=== PATIENT | female | born 1995 | race Caucasian/White ===

== ENCOUNTER 2019-10-24 11:30 | Emergency (ER) | payer BC, MEDICAID ==
--- NOTE | 2019-10-24 12:37 | EDM.PDOC ---
ED HPI GENERAL MEDICAL PROBLEM - General Chief Complaint: Respiratory Problem Stated Complaint: CONGESTION AND COUGH 32 WEEKS PREG Time Seen by Provider: 10/24/19 12:04 Source of Information: Reports: Patient, RN Notes Reviewed History Limitations: Reports: No Limitations - History of Present Illness INITIAL COMMENTS - FREE TEXT/NARRATIVE: Patient is a 24-year-old female who presents to the ED for the evaluation of cough and chest congestion. Patient is 32 weeks , . 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 Patient notes that she developed a cough around 2 days ago, but noticed that she was developing some chest soreness yesterday, she feels as if there are just razor blades in her chest. She notes that she is coughing up some yellow sputum at times, but not with every cough. She does note feeling hot and cold however she has not had any documented fever at home. She has been having a mild headache as well with the coughing. Patient notes she has been using some Tylenol at home, and did take 1 dose of Robitussin, this did not provide a very good relief from the cough. She notes that she is not having any stridor nausea/vomiting/diarrhea, no abdominal cramping or vaginal bleeding, she states that she is feeling the fetus move well, and notes that her is going well. She did not receive a flu vaccine this year however. Patient denies any sort of previous respiratory history of asthma. Chest Pain Score (Numeric/FACES): 4 - Related Data Allergies Allergy/AdvReac Type Severity Reaction Status Date / Time sulfamethoxazole Allergy Airway Verified 10/24/19 12:03 [From Bactrim] Tightness trimethoprim [From Bactrim] Allergy Airway Verified 10/24/19 12:03 Tightness Home Meds: Home Meds FLUoxetine HCl [Prozac] 20 mg PO DAILY 10/24/19 [History] Oseltamivir [Tamiflu] 75 mg PO BID #10 cap 10/24/19 [Rx] Pnv No.95/Ferrous Fum/Folic AC [ Vitamins Tablet] 1 tab PO DAILY [History] Promethazine HCl/Codeine [Prometh-Codein 6.25-10 mg/5 ml] 5 ml PO Q4H PRN #60 ml 10/24/19 [Rx] Past Medical History 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 Denies: Shortness of Breath, Wheezing GI/Abdominal: Denies: Abdominal Pain, Constipation, Diarrhea, Nausea, Vomiting Musculoskeletal: Denies: Back Pain Neurological: Reports: Headache (mild) ED EXAM, GENERAL - Physical Exam Exam: See Below Exam Limited By: No Limitations General Appearance: Alert, WD/WN, No Apparent Distress Eye Exam: Bilateral Eye: EOMI, Normal Inspection, PERRL Ears: Normal External Exam, Normal Canal, Hearing Grossly Normal, Normal TMs Nose: Normal Inspection Throat/Mouth: Normal Inspection, Normal Lips, Normal Teeth, Normal Gums, Normal Oropharynx, Normal Voice, No Airway Compromise Head: Atraumatic, Normocephalic Neck: Normal Inspection, Supple, Non-Tender, Full Range of Motion Respiratory/Chest: No Respiratory Distress, Lungs Clear, Normal Breath Sounds, No Accessory Muscle Use, Chest Non-Tender Cardiovascular: Normal Peripheral Pulses, Regular Rate, Rhythm, No Edema, No Murmur GI/Abdominal: Normal Bowel Sounds, Soft, Non-Tender, No Distention, No Mass Extremities: Normal Inspection, Normal Capillary Refill Neurological: Alert, Oriented, Normal Cognition, No Motor/Sensory Deficits Psychiatric: Normal Affect, Normal Mood Skin Exam: Warm, Dry, Intact, Normal Color, No Rash Course - Vital Signs Last Recorded V/S: Last Vital Signs Temp 97.7 F 10/24/19 12:04 Pulse 92 10/24/19 12:04 Resp 17 10/24/19 12:04 BP 123/68 10/24/19 12:04 Pulse Ox 99 10/24/19 12:04 - Orders/Labs/Meds Meds: Medications Discontinued Medications Generic Name Dose Route Start Last Admin Trade Name Freq PRN Reason Stop Dose Admin Influenza Virus Vaccine 60 mcg 10/24/19 13:25 Fluzone Quad [id number] Syringe IM 10/24/19 13:26 .ONCE ONE - Re-Assessments/Exams Free Text/Narrative Re-Assessment/Exam: 10/24/19 12:37 Patient presents to the ED for evaluation of a cough and chest congestion, she is afebrile at time of presentation, however due to her reported feeling hot and cold at home I will obtain a flu swab for evaluation, however will likely recommend symptomatic treatment. 10/24/19 13:12 I did discuss the use of phenergan with codeine cough syrup with Dr. Flynn, he thinks it should be fine/safe to use in small doses. I will give the patient a small amount of this and have her try other symptomatic OTC treatments, and have her follow up with her WIND PROJECT MANAGER on saturday. Pt is influenza B positive. 10/24/19 13:[address] Denny and she states that Tamiflu is safe to use in . She also noted that the Phenergan and codeine is okay as well, in small doses. She suggested giving the patient a flu shot as well today. Departure - Departure Time of Disposition: 13:27 Disposition: Home, Self-Care 01 Condition: Fair Clinical Impression: Influenza B - Discharge Information *PRESCRIPTION DRUG MONITORING PROGRAM REVIEWED*: No *COPY OF PRESCRIPTION DRUG MONITORING REPORT IN PATIENT VIOLA: No Prescriptions: Oseltamivir [Tamiflu] 75 mg PO BID #10 cap Promethazine HCl/Codeine [Prometh-Codein 6.25-10 mg/5 ml] 5 ml PO Q4H PRN #60 ml PRN Reason: Cough Instructions: Influenza, Adult, [id number] Referrals: Megan Wade MD [Primary Care Provider] - Forms: ED Department Discharge Additional Instructions: You have been evaluated in the ED for cold like symptoms and fever. You did test positive for influenza B. Please try to limit your exposure to others until you are 24 hours fever free. You may take Tylenol, 500 mg every 6 hours as needed for fever and pain relief. You were given a prescription for Tamiflu, please take as directed until gone. You were also given a prescription for some stronger cough medicine, take as directed, please be cautioned that this can cause decreased movement of the fetus as this has an opiate in it. Please try to take as little of this is possible for cough relief. You were also given a list of common over-the- counter medications and her safety use during , you may references for further symptomatic control. Please encourage fluid intake as well as a bland diet until you can tolerate normal foods. Please return to the ED if your symptoms should change or worsen. Sepsis Event Note - Evaluation Sepsis Screening Result: Possible Sepsis Risk - Focused Exam Vital Signs: Vital Signs Temp Pulse Resp BP Pulse Ox 10/24/19 12:04 97.7 F 92 17 123/68 99 Date Exam was Performed: 10/24/19 Time Exam was Performed: 13:26
[2019-10-24] MEDS ORDERED: FLU Vacc QS2019-20(6MOS+)/PF 60 MCG/0.5 ML SYRINGE IM ONE (13:25)
== END 2019-10-24 13:45 | disposition home or self-care (01) ==
LOC: JD.ED 11:30
DX: J10.1 Influenza due to other identified influenza virus with other respiratory manifestations (principal); Z88.1 Allergy status to other antibiotic agents
CPT/HCPCS: 87804; 90686; 99283; 99284-25; G0008

== ENCOUNTER 2019-12-19 09:47 | Inpatient (IN) | payer BC, MEDICAID ==
[2019-12-19] MEDS ORDERED: Misoprostol 100 MCG Tab VAG PRN (11:45)
[2019-12-19] MEDS ORDERED: Oxytocin/Lactated Ringers 10 UNIT/1,000 ML BAG IV SCH ×2 (11:45)
[2019-12-19] MEDS ORDERED: Ondansetron 4 MG/2 ML SDV IVPUSH PRN (11:45)
[2019-12-19] MEDS ORDERED: Sodium Chloride 0.9% 10 ML Syringe FLUSH PRN (11:45)
[2019-12-19] MEDS ORDERED: Nalbuphine 10 MG/ML Syringe IVPUSH PRN (11:45)
--- NOTE | 2019-12-19 12:14 | PCM.LDHP ---
L&D History of Present Illness - General Date of Service: 12/19/19 Admit Problem/Dx: Patient Status Order with Admit Dx/Problem 12/19/19 11:45 Patient Status [ADT] Routine Admission Diagnosis/Problem Admission Diagnosis/Problem 40 weeks gestation of Source of Information: Patient History Limitations: Reports: No Limitations - History of Present Illness Introduction:: Patient is a 24 y/o at 40 4/7 wks who presents for post dates IOL. Doing well today. Having some mild cramping. Notes good FM. 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: 0 LMP (Approximate): Psychiatric History: Reports: Anxiety, Depression - Past Surgical History GI Surgical History: Reports: Appendectomy Social & Family History - Family History Family Medical History: Noncontributory - Tobacco Use Smoking Status *Q: Former Smoker - Caffeine Use Caffeine Use: Reports: Coffee - Alcohol Use Alcohol Use History: No - Recreational Drug Use Recreational Drug Use: No H&P Review of Systems - Review of Systems: Review Of Systems: See Below General: Reports: No Symptoms Pulmonary: Reports: No Symptoms Cardiovascular: Reports: No Symptoms Gastrointestinal: Reports: No Symptoms Genitourinary: Reports: No Symptoms Musculoskeletal: Reports: No Symptoms Psychiatric: Reports: No Symptoms Neurological: Reports: No Symptoms L&D Exam - Exam Exam: See Below - OB Specific Contraction Intensity: Irritability Movement: Active Heart Tones: Present Heart Tones per Min: 120 Heart Rate (FHR) Variability: Moderate (6-25 bmp) Presentation: Vertex - Garcia Score Garcia Score Cervix Position: Midposition Garcia Score Consistency: Soft Garcia Score Effacement: >80% Garcia Score Dilation: 1-2 cm Garcia Score Infant's Station: -1 ,0 Garcia Score Total: 9 - Exam General: Alert, Oriented, Cooperative Lungs: Clear to Auscultation, Normal Respiratory Effort Cardiovascular: Regular Rate, Regular Rhythm GI/Abdominal Exam: Soft, Non-Tender Genitourinary: Normal external exam Extremities: Normal Inspection Skin: Warm, Dry, Intact - Patient Data Result Diagrams: 12/19/19 13:36 - Problem List (1) Postmaturity , 40-42 weeks gestation SNOMED Code(s): 91326316153916 ICD Code: O48.0 - POST-TERM Status: Acute Current Visit: Yes (2) Rubella non-immune status, antepartum SNOMED Code(s): 345520623 ICD Code: O99.89 - OTH DISEASES AND CONDITIONS COMPL PREG/CHLDBRTH; Z28.3 - UNDERIMMUNIZATION STATUS Status: Acute Current Visit: Yes Problem List Initiated/Reviewed/Updated: Yes Orders Last 24hrs: Active Orders 24 hr Category Date Time Status Patient Status [ADT] Routine ADT 12/19/19 11:45 Active Activity as Tolerated [RC] PFP Care 12/19/19 11:45 Active Communication Order [RC] ASDIRECTED Care 12/19/19 11:45 Active Communication Order [RC] ASDIRECTED Care 12/19/19 11:45 Active Communication Order [RC] ASDIRECTED Care 12/19/19 11:45 Active Heart Tones [RC] ASDIRECTED Care 12/19/19 11:46 Active Monitoring [RC] INTERMITTENT Care 12/19/19 11:45 Active Non Stress Test [RC] PER UNIT ROUTINE Care 12/19/19 11:45 Active Notify Provider [RC] ASDIRECTED Care 12/19/19 11:45 Active Notify Provider [RC] PRN Care 12/19/19 11:45 Active Peripheral IV Care [RC] . DIRECTED Care 12/19/19 11:46 Active Up ad Cristal [RC] ASDIRECTED Care 12/19/19 11:46 Active Vaginal Exam [RC] ASDIRECTED Care 12/19/19 11:45 Active Vital Signs [RC] ASDIRECTED Care 12/19/19 11:45 Active Regular Diet [DIET] Diet 12/19/19 Lunch Active CBC W/O DIFF,HEMOGRAM [HEME] Routine Lab 12/19/19 13:30 Ordered RAPID PLASMA REAGIN,RPR [CHEM] Routine Lab 12/19/19 13:30 Ordered TYPE AND SCREEN [BBK] Routine Lab 12/19/19 13:30 Ordered Lactated Ringers [Ringers, Lactated] 1,000 ml Med 12/19/19 11:45 Active IV ASDIRECTED Nalbuphine [Nubain] Med 12/19/19 11:45 Active 10 mg IVPUSH Q2H PRN Ondansetron [Zofran] Med 12/19/19 11:45 Active 4 mg IVPUSH Q4H PRN Oxytocin/Lactated Ringers [Pitocin in LR 10 Units/1,000 Med 12/19/19 11:45 Active ML] 10 unit in 1,000 ml IV CONTINUOUS Oxytocin/Lactated Ringers [Pitocin in LR 10 Units/1,000 Med 12/19/19 11:45 Active ML] 10 unit in 1,000 ml IV TITRATE Sodium Chloride 0.9% [Saline Flush] Med 12/19/19 11:45 Active 10 ml FLUSH ASDIRECTED PRN miSOPROStoL [Cytotec] Med 12/19/19 11:45 Active 25 mcg VAG Q4H PRN Electronic Heart Tones Ext w TOCO [WOMSER] Oth 12/19/19 11:45 Ordered Routine Electronic Heart Tones Internal [WOMSER] Per Unit Oth 12/19/19 11:45 Ordered Routine Peripheral IV Insertion Adult [OM.PC] Routine Oth 12/19/19 11:45 Ordered Resuscitation Status Routine Resus Stat 12/19/19 11:45 Ordered Medication Orders Lactated Ringer's (Ringers, Lactated) 1,000 mls @ 40 mls/hr IV ASDIRECTED TYLER Oxytocin/Lactated Ringer's (Pitocin In Lr 10 Units/1,000 Ml) 10 unit in 1,000 mls @ 12 mls/hr IV TITRATE TYLER; Protocol Oxytocin/Lactated Ringer's (Pitocin In Lr 10 Units/1,000 Ml) 10 unit in 1,000 mls @ 500 mls/hr IV CONTINUOUS TYLER Misoprostol (Cytotec) 25 mcg VAG Q4H PRN PRN Reason: cervical ripening Nalbuphine HCl (Nubain) 10 mg IVPUSH Q2H PRN PRN Reason: Pain Ondansetron HCl (Zofran) 4 mg IVPUSH Q4H PRN PRN Reason: Nausea/Vomiting Sodium Chloride (Saline Flush) 10 ml FLUSH ASDIRECTED PRN PRN Reason: Keep Vein Open Assessment/Plan Comment:: * Labs * GBS negative, no need for antibiotics * Cytotec for IOL. Will start pitocin and switch to AROM when able * Pain management per patient preference * Anticipate * MMR after delivery
[2019-12-19] MEDS ORDERED: Misoprostol 25 MCG (1/4 of 100 MCG) Tab VAG PRN (12:21)
[2019-12-19] MEDS: Lactated Ringers 1,000 ML IV SCH ×3 (17:00→22:26)
[2019-12-19] MEDS: Calcium Carbonate 500 MG Tab.Chew PO PRN (17:19)
--- NOTE | 2019-12-19 18:34 | PCM.PREANE ---
Preanesthetic Assessment - Anesthesia/Transfusion/Family Hx Anesthesia History: Prior Anesthesia Without Reaction Transfusion History: No Prior Transfusion(s) - Review of Systems General: No Symptoms Pulmonary: No Symptoms Cardiovascular: No Symptoms Gastrointestinal: No Symptoms Neurological: No Symptoms Other: Reports: None - Physical Assessment Vital Signs: Last Vital Signs Temp 97.6 F 12/19/19 11:45 Pulse 94 12/19/19 11:45 Resp 16 12/19/19 11:45 BP 119/77 12/19/19 11:45 Pulse Ox Height: 1.52 m Weight: 93.894 kg ASA Class: 2 Mental Status: Alert & Oriented x3 Airway Class: Mallampati = 3 Dentition: Reports: Normal Dentition Thyro-Mental Finger Breadths: 3 Mouth Opening Finger Breadths: 3 ROM/Head Extension: Limited/Partial (shorter neck) Lungs: Clear to Auscultation, Normal Respiratory Effort Cardiovascular: Regular Rate, Regular Rhythm - Lab Values: Laboratory Last Values WBC 14.27 K/mm3 (3.98-10.04) H 12/19/19 13:36 RBC 4.10 M/mm3 (3.98-5.22) 12/19/19 13:36 Hgb 11.9 gm/dl (11.2-15.7) 12/19/19 13:36 Hct 35.8 % (34.1-44.9) 12/19/19 13:36 MCV 87.3 fl (79.4-94.8) 12/19/19 13:36 MCH 29.0 pg (25.6-32.2) 12/19/19 13:36 MCHC 33.2 g/dl (32.2-35.5) 12/19/19 13:36 RDW Std Deviation 41.0 fL (36.4-46.3) 12/19/19 13:36 Plt Count 351 K/mm3 (182-369) 12/19/19 13:36 MPV 8.8 fl (9.4-12.3) L 12/19/19 13:36 Blood Type O POSITIVE 12/19/19 13:36 Gel Antibody Screen Negative 12/19/19 13:36 - Allergies Allergies/Adverse Reactions: Allergies Allergy/AdvReac Type Severity Reaction Status Date / Time sulfamethoxazole Allergy Airway Verified 10/24/19 12:03 [From Bactrim] Tightness trimethoprim [From Bactrim] Allergy Airway Verified 10/24/19 12:03 Tightness - Acknowledgements Anesthesia Type Planned: Epidural Pt an Appropriate Candidate for the Planned Anesthesia: Yes Alternatives and Risks of Anesthesia Discussed w Pt/Guardian: Yes Pt/Guardian Understands and Agrees with Anesthesia Plan: Yes PreAnesthesia Questionnaire - Past Health History Medical/Surgical History: Denies Medical/Surgical History Respiratory History: Reports: Asthma 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: Psychiatric History: Reports: Anxiety, Depression - Past Surgical History GI Surgical History: Reports: Appendectomy - SUBSTANCE USE Smoking Status *Q: Former Smoker Tobacco Use Within Last Twelve Months: Cigarettes Recreational Drug Use History: No - HOME MEDS Home Medications: Home Meds FLUoxetine HCl [Prozac] 20 mg PO DAILY 10/24/19 [History] Pnv No.95/Ferrous Fum/Folic AC [ Vitamins Tablet] 1 tab PO DAILY [History] - CURRENT (IN HOUSE) MEDS Current Meds: Current Medications Calcium Carbonate/Glycine (Tums) 1,000 mg PO Q2HR PRN PRN Reason: Indigestion Last Admin: 12/19/19 17:19 Dose: 1,000 mg Lactated Ringer's (Ringers, Lactated) 1,000 mls @ 40 mls/hr IV ASDIRECTED TYLER Last Admin: 12/19/19 17:00 Dose: 40 mls/hr Oxytocin/Lactated Ringer's (Pitocin In Lr 10 Units/1,000 Ml) 10 unit in 1,000 mls @ 12 mls/hr IV TITRATE TYLER; Protocol Last Titration: 12/19/19 17:45 Dose: 4 munits/min, 24 mls/hr Oxytocin/Lactated Ringer's (Pitocin In Lr 10 Units/1,000 Ml) 10 unit in 1,000 mls @ 500 mls/hr IV CONTINUOUS TYLER Misoprostol (Cytotec) 25 mcg VAG ONETIME PRN PRN Reason: induction Last Admin: 12/19/19 12:54 Dose: 25 mcg Nalbuphine HCl (Nubain) 10 mg IVPUSH Q2H PRN PRN Reason: Pain Ondansetron HCl (Zofran) 4 mg IVPUSH Q4H PRN PRN Reason: Nausea/Vomiting Sodium Chloride (Saline Flush) 10 ml FLUSH ASDIRECTED PRN PRN Reason: Keep Vein Open Discontinued Medications Misoprostol (Cytotec) 25 mcg VAG Q4H PRN PRN Reason: cervical ripening
[2019-12-19] MEDS ORDERED: ePHEDrine 50 MG/ML SDV IVPUSH PRN (19:57)
[2019-12-19] MEDS ORDERED: diphenhydrAMINE 50 MG/ML SDV IVPUSH PRN (19:57)
[2019-12-19] MEDS: fentaNYL 100 MCG/2 ML SDV EPIDUR PRN (20:29)
[2019-12-19] MEDS: Bupivacaine/fentaNYL/NS 100 ML Bag EPIDUR PRN (20:29)
[2019-12-20] MEDS ORDERED: Bupivacaine 0.25% 10 ML SDV ONE
[2019-12-20] MEDS: Bupivacaine/fentaNYL/NS 100 ML Bag EPIDUR PRN (03:37)
[2019-12-20] MEDS: Calcium Carbonate 500 MG Tab.Chew PO PRN ×2 (03:37→08:50)
[2019-12-20] MEDS: fentaNYL 100 MCG/2 ML SDV EPIDUR PRN (04:01)
--- NOTE | 2019-12-20 08:53 | PCM.SN ---
- Free Text/Narrative Note: 0 At 2130 patient with SROM. Was about 3 cm at that time. Contraction pattern seemed to be q1 and so nursing throughout course of night continued decreasing pitocin. Now, however, without change. IUPC placed. Will continue to increase pitocin per protocol. Megan Wade MD
--- NOTE | 2019-12-20 10:15 | PCM.DEL ---
L & D Note - General Info Date of Service: 12/20/19 - Delivery Note Labor: Induced by Oxytocin Cervical Ripening Method: Misoprostil Delivery Outcome: Livebirth Delivery Method: Spontaneous Vaginal Delivery-Single Delivery Mode: Spontaneous Presentation: Left Occiput Anterior (ALISHA) Nuchal Cord: None Anesthesia Type: Epidural Amniotic Fluid Description: Clear Episiotomy Type: None Laceration: 2nd Degree, Perineal Suture type: Vicryl Suture size: 2-0 Placenta: Intact, Spontaneous Cord: 3 Vessels Estimated Blood Loss: 300 Resuscitation Needed: Yes : Bulb Syringe, Stimulated, Warmed, [place] Used, Warmer Used Delivery Comments (Free Text/Narrative):: Patient found to be complete and began pushing. With maternal pushing effort head delivered from an ALISHA presentation. No nuchal cord present. With gentle downward traction the shoulders and body delivered. infant placed on maternal abdomen. Cord clamped and cut. Cord blood obtained. Placenta allowed time to separate and expelled intact. inspection of the perineum showed a 2nd degree laceration which was repaired with a 2-0 vicryl. - General Info Date of Service: 12/20/19 - Patient Data Vitals - Most Recent: Last Vital Signs Temp 36.4 C 12/19/19 11:45 Pulse 94 12/19/19 11:45 Resp 16 12/19/19 11:45 BP 119/77 12/19/19 11:45 Pulse Ox Weight - Most Recent: 93.894 kg - Problem List & Annotations (1) Postmaturity , 40-42 weeks gestation SNOMED Code(s): 59704028276687 Code(s): O48.0 - POST-TERM Status: Acute Current Visit: Yes (2) Rubella non-immune status, antepartum SNOMED Code(s): 446520804 Code(s): O99.89 - OTH DISEASES AND CONDITIONS COMPL PREG/CHLDBRTH; Z28.3 - UNDERIMMUNIZATION STATUS Status: Acute Current Visit: Yes (3) Vaginal delivery SNOMED Code(s): 858599458 Code(s): O80 - ENCOUNTER FOR FULL-TERM UNCOMPLICATED DELIVERY Status: Acute Current Visit: Yes - Problem List Review Problem List Initiated/Reviewed/Updated: Yes - My Orders Last 24 Hours: My Active Orders 12/19/19 11:45 Patient Status [ADT] Routine Activity as Tolerated [RC] PFP Communication Order [RC] ASDIRECTED Communication Order [RC] ASDIRECTED Communication Order [RC] ASDIRECTED Non Stress Test [RC] PER UNIT ROUTINE Notify Provider [RC] ASDIRECTED Notify Provider [RC] PRN Vital Signs [RC] ASDIRECTED Lactated Ringers [Ringers, Lactated] 1,000 ml IV ASDIRECTED Nalbuphine [Nubain] 10 mg IVPUSH Q2H PRN Ondansetron [Zofran] 4 mg IVPUSH Q4H PRN Oxytocin/Lactated Ringers [Pitocin in LR 10 Units/1,000 ML] 10 unit in 1,000 ml IV CONTINUOUS Oxytocin/Lactated Ringers [Pitocin in LR 10 Units/1,000 ML] 10 unit in 1,000 ml IV TITRATE Sodium Chloride 0.9% [Saline Flush] 10 ml FLUSH ASDIRECTED PRN Electronic Heart Tones Ext w TOCO [WOMSER] Routine Electronic Heart Tones Internal [WOMSER] Per Unit Routine Peripheral IV Insertion Adult [OM.PC] Routine Resuscitation Status Routine 12/19/19 11:46 Up ad Cristal [RC] ASDIRECTED 12/19/19 12:21 miSOPROStoL [Cytotec] 25 mcg VAG ONETIME PRN 12/19/19 17:11 Calcium Carbonate [Tums] 1,000 mg PO Q2HR PRN 12/19/19 Lunch Regular Diet [DIET] - Assessment Assessment:: PPD#0 - Plan Plan:: * Routine cares * breast feeding * MMR after delivery * Discharge home in 1-2 days
[2019-12-20] MEDS ORDERED: Docusate Sodium 100 MG Cap PO PRN (11:18)
[2019-12-20] MEDS ORDERED: Benzocaine/Menthol 20%-0.5% Spray 56 GM Canister TOP PRN (11:18)
[2019-12-20] MEDS ORDERED: Witch Hazel Medicated Pads 40/Jar TOP PRN (11:18)
[2019-12-20] MEDS: Ibuprofen 600 MG Tab PO PRN ×2 (11:41→20:53)
[2019-12-20] MEDS ORDERED: Nicotine 14 MG/24 Hr Patch TRDERM SCH (16:00)
[2019-12-20] MEDS: Nicotine 7 MG/24 Hr Patch TRDERM SCH (16:24)
[2019-12-21] MEDS: Acetaminophen 325 MG Tab PO PRN ×3 (00:54→13:16)
--- NOTE | 2019-12-21 06:51 | PCM.PNPP ---
- General Info Date of Service: 12/21/19 Functional Status: Reports: Pain Controlled, Tolerating Diet, Ambulating, Urinating - Review of Systems General: Reports: No Symptoms Pulmonary: Reports: No Symptoms Cardiovascular: Reports: No Symptoms Gastrointestinal: Reports: No Symptoms Genitourinary: Reports: No Symptoms Musculoskeletal: Reports: No Symptoms Neurological: Reports: No Symptoms - Patient Data Vital Signs - Most Recent: Last Vital Signs Temp 36.7 C 12/20/19 15:30 Pulse 72 12/21/19 04:47 Resp 16 12/21/19 04:47 BP 110/90 12/21/19 04:47 Pulse Ox 97 12/21/19 04:47 Weight - Most Recent: 93.894 kg I&O - Last 24 Hours: Intake & Output 12/20/19 12/20/19 12/21/19 14:59 22:59 06:59 Intake Total 1650 Balance 1650 Med Orders - Current: Current Medications Acetaminophen (Tylenol) 650 mg PO Q4H PRN PRN Reason: mild pain or fever Last Admin: 12/21/19 00:54 Dose: 650 mg Benzocaine/Menthol (Dermoplast Pain Relief [place]) 0 gm TOP ASDIRECTED PRN PRN Reason: Perineal Comfort Measure Last Admin: 12/20/19 11:42 Dose: 1 spray Docusate Sodium (Colace) 100 mg PO BID PRN PRN Reason: Constipation Fluoxetine HCl (Prozac) 20 mg PO DAILY [facility] Ibuprofen (Motrin) 600 mg PO Q6H PRN PRN Reason: Mild pain or fever Last Admin: 12/20/19 20:53 Dose: 600 mg Miscellaneous Information (Remove Patch) 1 ea TRDERM DAILY [facility] Nicotine (Habitrol) 7 mg TRDERM DAILY [facility] Last Admin: 12/20/19 16:24 Dose: 7 mg Witch Jasmine (Tucks) 1 pad TOP ASDIRECTED PRN PRN Reason: Perineal Comfort Measure Last Admin: 12/20/19 11:42 Dose: 1 pad Discontinued Medications Calcium Carbonate/Glycine (Tums) 1,000 mg PO Q2HR PRN PRN Reason: Indigestion Last Admin: 12/20/19 08:50 Dose: 1,000 mg Diphenhydramine HCl (Benadryl) 25 mg IVPUSH Q6H PRN PRN Reason: pruritis Ephedrine Sulfate (Ephedrine Sulfate) 5 mg IVPUSH ASDIRECTED PRN PRN Reason: Hypotension Fentanyl (Sublimaze) 100 mcg EPIDUR Q3H PRN PRN Reason: Pain Last Admin: 12/20/19 04:01 Dose: 100 mcg Fentanyl/Bupivacaine HCl (Fentanyl/Bupivacaine/Ns 2 Mcg-0.125% 100 Ml) 100 ml EPIDUR ASDIRECTED PRN PRN Reason: Pain Last Admin: 12/20/19 03:37 Dose: 100 ml Lactated Ringer's (Ringers, Lactated) 1,000 mls @ 40 mls/hr IV ASDIRECTED TYLER Last Admin: 12/19/19 22:26 Dose: 40 mls/hr Oxytocin/Lactated Ringer's (Pitocin In Lr 10 Units/1,000 Ml) 10 unit in 1,000 mls @ 12 mls/hr IV TITRATE TYLER; Protocol Last Titration: 12/20/19 07:45 Dose: 13 munits/min, 78 mls/hr Oxytocin/Lactated Ringer's (Pitocin In Lr 10 Units/1,000 Ml) 10 unit in 1,000 mls @ 500 mls/hr IV CONTINUOUS TYLER Last Admin: 12/20/19 10:20 Dose: 500 mls/hr Misoprostol (Cytotec) 25 mcg VAG Q4H PRN PRN Reason: cervical ripening Misoprostol (Cytotec) 25 mcg VAG ONETIME PRN PRN Reason: induction Last Admin: 12/19/19 12:54 Dose: 25 mcg Nalbuphine HCl (Nubain) 10 mg IVPUSH Q2H PRN PRN Reason: Pain Nicotine (Habitrol) 14 mg TRDERM DAILY [facility] Ondansetron HCl (Zofran) 4 mg IVPUSH Q4H PRN PRN Reason: Nausea/Vomiting Last Admin: 12/20/19 02:36 Dose: 4 mg Sodium Chloride (Saline Flush) 10 ml FLUSH ASDIRECTED PRN PRN Reason: Keep Vein Open - Interaction Infant Disposition, : [place] in Room with Family Interaction: Holding Infant Infant Feeding: Attempted ; Nursed Fair/Poor - Recovery Exam Fundal Tone: Firm Fundal Level: At Umbilicus Fundal Placement: Midline Lochia Amount: Small Lochia Color: Rubra/Red Bladder Status: Voiding - Exam General: Alert, Oriented, Cooperative GI/Abdominal Exam: Soft, Non-Tender Extremities: Normal Inspection Skin: Warm, Dry, Intact - Problem List & Annotations (1) Postmaturity , 40-42 weeks gestation SNOMED Code(s): 26249429190332 Code(s): O48.0 - POST-TERM Status: Acute Current Visit: Yes (2) Rubella non-immune status, antepartum SNOMED Code(s): 243997598 Code(s): O99.89 - OTH DISEASES AND CONDITIONS COMPL PREG/CHLDBRTH; Z28.3 - UNDERIMMUNIZATION STATUS Status: Acute Current Visit: Yes (3) Vaginal delivery SNOMED Code(s): 464661790 Code(s): O80 - ENCOUNTER FOR FULL-TERM UNCOMPLICATED DELIVERY Status: Acute Current Visit: Yes - Problem List Review Problem List Initiated/Reviewed/Updated: Yes - My Orders Last 24 Hours: My Active Orders 12/20/19 11:18 Activity as Tolerated [RC] PER UNIT ROUTINE Vital Signs [RC] 03,09,15,21 Acetaminophen [Tylenol] 650 mg PO Q4H PRN Benzocaine/Menthol [Dermoplast Pain Relief [place]] See Dose Instructions TOP ASDIRECTED PRN Docusate Sodium [Colace] 100 mg PO BID PRN Ibuprofen [Motrin] 600 mg PO Q6H PRN Witch Jasmine [Tucks] 1 pad TOP ASDIRECTED PRN Assess Lochia [WOMSER] Per Unit Routine Assess Uterine Involution [WOMSER] Per Unit Routine Breast Pump [WOMSER] Per Unit Routine Heat Therapy [OM.PC] PRN Ice Therapy [OM.PC] Per Unit Routine Perineal Care [OM.PC] Per Unit Routine Peripheral IV Discontinue [OM.PC] Routine Sitz Bath [OM.PC] Per Unit Routine 12/20/19 16:15 Nicotine [Habitrol] 7 mg TRDERM DAILY 12/20/19 Breakfast Regular Diet [DIET] 12/21/19 09:00 FLUoxetine [PROzac] 20 mg PO DAILY Remove Patch 1 ea TRDERM DAILY 12/21/19 11:18 Heat Therapy [OM.PC] PRN - Assessment Assessment:: PPD#1 - Plan Plan:: * Routine cares * breast feeding * MMR prior to discharge * Discharge home tomorrow
[2019-12-21] MEDS: Ibuprofen 600 MG Tab PO PRN ×2 (07:52→14:17)
[2019-12-21] MEDS: Nicotine 7 MG/24 Hr Patch TRDERM SCH (09:00)
[2019-12-21] MEDS ORDERED: FLUoxetine 20 MG Cap PO SCH (09:00)
--- NOTE | 2019-12-21 16:58 | PCM.DCSUM1 ---
Discharge Summary - Discharge Data Discharge Date: 12/21/19 Discharge Disposition: Home, Self-Care 01 Condition: Good - Referral to Home Health Primary Care Physician: Megan Wade MD - Discharge Diagnosis/Problem(s) (1) Postmaturity , 40-42 weeks gestation SNOMED Code(s): 88562857253015 ICD Code: O48.0 - POST-TERM Status: Acute (2) Rubella non-immune status, antepartum SNOMED Code(s): 813243106 ICD Code: O99.89 - OTH DISEASES AND CONDITIONS COMPL PREG/CHLDBRTH; Z28.3 - UNDERIMMUNIZATION STATUS Status: Acute (3) Vaginal delivery SNOMED Code(s): 529835421 ICD Code: O80 - ENCOUNTER FOR FULL-TERM UNCOMPLICATED DELIVERY Status: Acute - Patient Summary/Data Complications: None Consults: None Recommended Follow-up Testing/Procedures: Follow up in 3 weeks for check Hospital Course: 24 y/o presetned at 40 4/7 wks for post dates IOL. Done with cytotec and then pitocin. She progressed well to complete dilation and underwent an uncomplicated . See delivery note. she did well and was discharged home on PPD#1 - Patient Instructions Diet: Regular Diet as Tolerated Activity: As Tolerated Activity, Other: Pelvic rest for 6 weeks Driving: May Drive Today Showering/Bathing: May Shower Showering/Bathing, Other: May Bathe Notify Provider of: Fever, Increased Pain, Swelling and Redness, Drainage, Nausea and/or Vomiting - Discharge Plan *PRESCRIPTION DRUG MONITORING PROGRAM REVIEWED*: No *COPY OF PRESCRIPTION DRUG MONITORING REPORT IN PATIENT VIOLA: No Home Medications: Home Meds FLUoxetine HCl [Prozac] 20 mg PO DAILY 10/24/19 [History] Pnv No.95/Ferrous Fum/Folic AC [ Vitamins Tablet] 1 tab PO DAILY [History] Docusate Sodium [Colace] 100 mg PO BID PRN cap 12/21/19 [Rx] Ibuprofen [Motrin] 600 mg PO Q6H PRN tablet 12/21/19 [Rx] Patient Handouts: Vaginal Delivery, Care After, Breast Pumping Tips, Easy-to- Read, Steps to Quit Smoking Referrals: Megan Wade MD [Primary Care Provider] - (3 weeks for postaprtum check ) - Discharge Summary/Plan Comment DC Time >30 min.: No - Patient Data Vitals - Most Recent: Last Vital Signs Temp 36.8 C 12/21/19 11:36 Pulse 83 12/21/19 11:36 Resp 16 12/21/19 11:36 BP 119/72 12/21/19 11:36 Pulse Ox 97 12/21/19 11:36 Weight - Most Recent: 93.894 kg Med Orders - Current: Current Medications Acetaminophen (Tylenol) 650 mg PO Q4H PRN PRN Reason: mild pain or fever Last Admin: 12/21/19 13:16 Dose: 650 mg Benzocaine/Menthol (Dermoplast Pain Relief [place]) 0 gm TOP ASDIRECTED PRN PRN Reason: Perineal Comfort Measure Last Admin: 12/20/19 11:42 Dose: 1 spray Docusate Sodium (Colace) 100 mg PO BID PRN PRN Reason: Constipation Fluoxetine HCl (Prozac) 20 mg PO DAILY [facility] Last Admin: 12/21/19 09:51 Dose: 20 mg Ibuprofen (Motrin) 600 mg PO Q6H PRN PRN Reason: Mild pain or fever Last Admin: 12/21/19 14:17 Dose: 600 mg Miscellaneous Information (Remove Patch) 1 ea TRDERM DAILY [facility] Last Admin: 12/21/19 09:00 Dose: 1 ea Nicotine (Habitrol) 7 mg TRDERM DAILY [facility] Last Admin: 12/21/19 09:00 Dose: Not Given Witch Jasmine (Tucks) 1 pad TOP ASDIRECTED PRN PRN Reason: Perineal Comfort Measure Last Admin: 12/20/19 11:42 Dose: 1 pad Discontinued Medications Bupivacaine HCl (Sensorcaine-Mpf 0.25%) 20 ml .ROUTE .STK-MED ONE Stop: 12/20/19 00:01 Calcium Carbonate/Glycine (Tums) 1,000 mg PO Q2HR PRN PRN Reason: Indigestion Last Admin: 12/20/19 08:50 Dose: 1,000 mg Diphenhydramine HCl (Benadryl) 25 mg IVPUSH Q6H PRN PRN Reason: pruritis Ephedrine Sulfate (Ephedrine Sulfate) 5 mg IVPUSH ASDIRECTED PRN PRN Reason: Hypotension Fentanyl (Sublimaze) 100 mcg EPIDUR Q3H PRN PRN Reason: Pain Last Admin: 12/20/19 04:01 Dose: 100 mcg Fentanyl/Bupivacaine HCl (Fentanyl/Bupivacaine/Ns 2 Mcg-0.125% 100 Ml) 100 ml EPIDUR ASDIRECTED PRN PRN Reason: Pain Last Admin: 12/20/19 03:37 Dose: 100 ml Lactated Ringer's (Ringers, Lactated) 1,000 mls @ 40 mls/hr IV ASDIRECTED TYLER Last Admin: 12/19/19 22:26 Dose: 40 mls/hr Oxytocin/Lactated Ringer's (Pitocin In Lr 10 Units/1,000 Ml) 10 unit in 1,000 mls @ 12 mls/hr IV TITRATE TYLER; Protocol Last Titration: 12/20/19 07:45 Dose: 13 munits/min, 78 mls/hr Oxytocin/Lactated Ringer's (Pitocin In Lr 10 Units/1,000 Ml) 10 unit in 1,000 mls @ 500 mls/hr IV CONTINUOUS TYLER Last Admin: 12/20/19 10:20 Dose: 500 mls/hr Misoprostol (Cytotec) 25 mcg VAG Q4H PRN PRN Reason: cervical ripening Misoprostol (Cytotec) 25 mcg VAG ONETIME PRN PRN Reason: induction Last Admin: 12/19/19 12:54 Dose: 25 mcg Nalbuphine HCl (Nubain) 10 mg IVPUSH Q2H PRN PRN Reason: Pain Nicotine (Habitrol) 14 mg TRDERM DAILY [facility] Ondansetron HCl (Zofran) 4 mg IVPUSH Q4H PRN PRN Reason: Nausea/Vomiting Last Admin: 12/20/19 02:36 Dose: 4 mg Sodium Chloride (Saline Flush) 10 ml FLUSH ASDIRECTED PRN PRN Reason: Keep Vein Open
[2019-12-21] MEDS ORDERED: Measles, Mumps & Rubella Vaccine 0.5 ML SDV SUBCUT ONE (17:00)
== END 2019-12-21 17:30 | disposition home or self-care (01) | DRG 560 ==
LOC: JD.OB 09:47 → OBSVTOIN 12-20 09:47 → JD.OB 12-20 09:48
PROVIDERS: ADMIT Obstetrics & Gynecology; ATTEND Obstetrics & Gynecology
PROC: 10E0XZZ Delivery of Products of Conception, External Approach (ICD-10-PCS; principal; 2019-12-20)
PROC: 0KQM0ZZ Repair Perineum Muscle, Open Approach (ICD-10-PCS; 2019-12-20)
PROC: 3E0P7VZ Introduction of Hormone into Female Reproductive, Via Natural or Artificial Opening (ICD-10-PCS; 2019-12-20)
PROC: 3E033VJ Introduction of Other Hormone into Peripheral Vein, Percutaneous Approach (ICD-10-PCS; 2019-12-20)
PROC: 10H07YZ Insertion of Other Device into Products of Conception, Via Natural or Artificial Opening (ICD-10-PCS; 2019-12-20)
PROC: 3E0R3BZ Introduction of Anesthetic Agent into Spinal Canal, Percutaneous Approach (ICD-10-PCS; 2019-12-20)
PROC: 00HU33Z Insertion of Infusion Device into Spinal Canal, Percutaneous Approach (ICD-10-PCS; 2019-12-20)
PROC: 3E0234Z Introduction of Serum, Toxoid and Vaccine into Muscle, Percutaneous Approach (ICD-10-PCS; 2019-12-21)
DX: O48.0 Post-term pregnancy (principal); O99.344 Other mental disorders complicating childbirth; F32.9 Major depressive disorder, single episode, unspecified; F41.9 Anxiety disorder, unspecified; O70.1 Second degree perineal laceration during delivery; Z87.891 Personal history of nicotine dependence; Z3A.40 40 weeks gestation of pregnancy; Z37.0 Single live birth; Z88.2 Allergy status to sulfonamides; Z55.1 Schooling unavailable and unattainable; Z28.3 Underimmunization status
CPT/HCPCS: 01967; 36415; 51701; 51702; 59025; 59409; 85027; 86592; 86850; 86900; 86901; 90471; 90707; A9270-GY; J2405; J2590; J3010; J3490; J7120